=== PATIENT | male | born 1945 | race Caucasian/White ===

== ENCOUNTER 2017-10-29 06:10 | Inpatient (IN) | payer OTHER, BC ==
[2017-10-01 13:28] VITALS: BMI 33.0
[2017-10-01 13:29] LABS: BASO % 0.3 %; BASO ABS # 0.03 K/uL (0-0.2); EOS % 7.9 %; EOS ABS # 0.83 K/uL (0-0.5); HEMATOCRIT 46.8 % (42-52); HEMOGLOBIN 15.8 g/dL (14.0-18.0); IG# 0.03 K/uL (0.00-0.02); LYMPH % 18.4 %; LYMPH ABS # 1.94 K/uL (1.2-3.4); MEAN CELL VOLUME 92.5 fL (80-100); MEAN CORPUSCULAR HEMOGLOBIN 31.2 pg (25-34); MEAN CORPUSCULAR HGB CONC 33.8 g/dl (32-36); MEAN PLATELET VOLUME 11.4 fL (7.4-10.4); MONO ABS # 0.74 K/uL (0.11-0.59); NEUT % 66.1 %; NEUT ABS # 6.98 K/uL (1.4-6.5); PLATELET COUNT 233 K/uL (130-400); RED CELL DISTRIBUTION WIDTH CV 12.7 % (11.5-14.5); RED CELL DISTRIBUTION WIDTH SD 42.4 fL (36.4-46.3); WHITE BLOOD COUNT 10.55 K/uL (4.8-10.8)
[2017-10-01 13:42] LABS: PTT PATIENT 25.8 SECONDS (21.0-31.0)
[2017-10-01 13:56] LABS: HEMOGLOBIN A1C 7.4 % (4.5-5.6)
--- NOTE | 2017-10-01 14:09 | PAT Medication Instructions ---
Service Date Oct 01, 2017. Current Home Medication List Albuterol Hfa (Ventolin Hfa), 2 PUFFS INH Q6H PRN for PRN Amlodipine/Benazepril (Lotrel 10MG/20MG), 1 CAP PO QAM Ascorbic Acid (Vitamin C), 1,000 MG PO QAM Aspirin (Aspirin Ec), 81 MG PO QAM Atorvastatin (Lipitor), 20 MG PO QAM Fish Oil ([place]-3), 1 CAP PO QAM Fluticasone Propionate (Nasal) (Flonase Allergy Relief), 2 SPRAYS INTNAS QPM Garlic (Garlic), 500 MG PO QAM Home O2 Therapy (Oxygen), 2 LITERS NA PRN Meloxicam (Mobic), 15 MG PO QAM Metformin Hcl (Glucophage), 500 MG PO BID Milk Thistle (Silybum Marianum (Milk Thistle), 1,000 MG PO QAM Misc Natural Products (Saw [place]), 1 TAB PO QAM Multivitamin (Multivitamin), 1 TAB PO QAM Vitamin E (Vitamin E), 1,000 UNITS PO QAM [Calcium ], 600 MG PO QAM [Inhaler-Steroid], 1 PUFF INH BID Medication Instructions For Your Scheduled Surgery - Check with surgeon for instructions: Meloxicam (Mobic), 15 MG PO QAM - Hold the following medications 2 weeks prior to surgery: Vitamin E (Vitamin E), 1,000 UNITS PO QAM Milk Thistle (Silybum Marianum (Milk Thistle), 1,000 MG PO QAM Misc Natural Products (Saw [place]), 1 TAB PO QAM Garlic (Garlic), 500 MG PO QAM Fish Oil ([place]-3), 1 CAP PO QAM - Hold the following medications 48 hours prior to surgery: Metformin Hcl (Glucophage), 500 MG PO BID - Hold the following medications the morning of surgery: Amlodipine/Benazepril (Lotrel 10MG/20MG), 1 CAP PO QAM Ascorbic Acid (Vitamin C), 1,000 MG PO QAM Multivitamin (Multivitamin), 1 TAB PO QAM [Calcium ], 600 MG PO QAM - Take the following medications the morning of surgery with a sip of water: [Inhaler-Steroid], 1 PUFF INH BID Home O2 Therapy (Oxygen), 2 LITERS NA PRN (if needed) Aspirin (Aspirin Ec), 81 MG PO QAM (okay to continue per surgeon) Atorvastatin (Lipitor), 20 MG PO QAM Albuterol Hfa (Ventolin Hfa), 2 PUFFS INH Q6H PRN for PRN (if needed) - Take the following medications as scheduled the night before surgery: [Inhaler-Steroid], 1 PUFF INH BID Home O2 Therapy (Oxygen), 2 LITERS NA PRN (if needed) Fluticasone Propionate (Nasal) (Flonase Allergy Relief), 2 SPRAYS INTNAS QPM Albuterol Hfa (Ventolin Hfa), 2 PUFFS INH Q6H PRN for PRN (if needed) If you have any questions please call us at [phone] or [phone] or [phone]
--- NOTE | 2017-10-01 15:06 | DIAGNOSTIC IMAGING REPORT ---
TWO VIEW CHEST CLINICAL HISTORY: Preoperative examination. FINDINGS: PA and lateral chest radiographs are compared to study dated 06/05/2011. The heart is top normal for projection. The pulmonary vasculature is noncongested. Chronic interstitial thickening is similar to previous. There is minimal left basilar atelectasis. The lungs and pleural spaces are otherwise clear. There is no pneumothorax. The skeletal structures are osteopenic. Degenerative change is noted throughout the thoracic spine. Bilateral shoulder arthroplasties are in place. IMPRESSION: No active disease in the chest. Electronically signed by: Trung Rai M.D. 10/01/2017 3:05 PM Dictated Date/Time: 10/01/2017 3:04 PM
[2017-10-01 16:45] LABS: ALBUMIN 3.9 gm/dl (3.4-5.0); CALCIUM 10.6 mg/dl (8.5-10.1); CREATININE 0.79 mg/dl (0.60-1.40); POTASSIUM 4.2 mmol/L (3.5-5.1)
[2017-10-01 16:48] LABS: TOTAL PROTEIN 7.3 gm/dl (6.4-8.2)
--- NOTE | 2017-10-28 11:16 | History and Physical ---
History & Physical Date Oct 28, 2017. Chief Complaint LEFT HIP PAIN History of Present Illness The patient is a 71 year old male with complaints of left hip pain for years. Pt having trouble ambulating and has tried nsaids and PT. Additional History Hepatic Disease: No Endocrine Disorder: No Kidney Disease: No Hypertension: Yes Heart Disease: Yes Bleeding Tendencies: No Infectious Diseases: No Allergies Coded Allergies: No Known Allergies (Verified , 10/01/17) Home Medications Scheduled Amlodipine/Benazepril (Lotrel 10MG/20MG), 1 CAP PO QAM Ascorbic Acid (Vitamin C), 1,000 MG PO QAM Aspirin (Aspirin Ec), 81 MG PO QAM Atorvastatin (Lipitor), 20 MG PO QAM Fish Oil ([place]-3), 1 CAP PO QAM Fluticasone Propionate (Nasal) (Flonase Allergy Relief), 2 SPRAYS INTNAS QPM Garlic (Garlic), 500 MG PO QAM Home O2 Therapy (Oxygen), 2 LITERS NA PRN Meloxicam (Mobic), 15 MG PO QAM Metformin Hcl (Glucophage), 500 MG PO BID Milk Thistle (Silybum Marianum (Milk Thistle), 1,000 MG PO QAM Misc Natural Products (Saw [place]), 1 TAB PO QAM Multivitamin (Multivitamin), 1 TAB PO QAM Vitamin E (Vitamin E), 1,000 UNITS PO QAM [Calcium ], 600 MG PO QAM [Inhaler-Steroid], 1 PUFF INH BID Scheduled PRN Albuterol Hfa (Ventolin Hfa), 2 PUFFS INH Q6H PRN for PRN Physical Examination Skin: warm/dry, no rash Eyes: normal inspection, EOMI, sclerae normal ENT: normal ENT inspection, pharynx normal Head: normocephalic, atraumatic Neck: supple, no adenopathy, trachea midline Respiratory/Chest: lungs clear, normal breath sounds, no respiratory distress Cardiovascular: regular rate, rhythm, no edema, no murmur Abdomen / GI: normal bowel sounds, non tender Back: normal inspection Extremities: normal inspection, normal range of motion, + pertinent finding ( pain with rom left hip. limited rom left hip. ) Neurologic/Psych: no motor/sensory deficits, alert, normal reflexes, oriented x 3 Diagnosis DJD LEFT HIP Plan of Treatment PLAN IS TO ADMIT AND UNDERGO LEFT TOTAL HIP ARTHROPLASTY.
[~2017-10-29] VITALS: Ht 175.3 cm; Wt 103.5 kg
[2017-10-29] VITALS (9 sets, daily range): BP systolic 116–150; BP diastolic 63–83; PULSE 70–99; TEMP 36.2–36.9; O2SAT 92–100; Ht 175.3 cm; Wt 103.5 kg
[~2017-10-29 06:10] MED LIST: ACETAMINOPHEN 500 MG TAB PO SCH; AMLO10CA PO; ASCO10003 PO; ASPI81TA28 PO; ATOR-22 PO; CALCIUM PO; CEFAZOLIN 2000MG IV PUSH 15 ML IV SCH; CeleBREX 200 MG CAP PO SCH; DEXAMETHASONE 4 MG TAB PO SCH; FAMOTIDINE 20 MG TAB PO SCH; FLUT0.15 INTNAS; GARL500C5 PO; GLC/500 PO; LACTATED RINGER'S 1000ML 1,000 ML IV SCH; LACTATED RINGER'S 1000ML 500 ML IV SCH; LACTATED RINGER'S 1000ML IV SCH; MELO7.5T5 PO; METOCLOPRAMIDE HCL 10 MG TAB PO SCH; MILK1CAP9 PO; MISC1CAP60 PO; MULT-506 PO; OMEG10007 PO; OXGN; ROPIVACAINE 5MG/ML 30 ML 150 MG, BUPIVACAINE 0.5% MPF INJ 30 ML, EpINEphrine HCL INJ 0.... INFIL SCH; STEROID INH; VITA10004 PO; VNTHFA/IN INH
[2017-10-29] MEDS ORDERED: MIDAZOLAM HCL 1 MG/ML 2ML VIAL ONE (06:38)
[2017-10-29] MEDS ORDERED: FENTANYL CITRATE INJ 50 MCG/1 ML 2 ML VIAL ONE (06:38)
[2017-10-29] MEDS ORDERED: BUPIVACAINE 0.5 % 5 MG/1 ML PF 10ML VIAL ONE (06:40)
--- NOTE | 2017-10-29 06:44 | History & Physical Bridge Note ---
H&P Re-Evaluation Bridge Note: I have examined the patient, reviewed the History & Physical and in the interval since the performance of the History & Physical I have noted the following changes of clinical significance: No changes noted
[2017-10-29] MEDS ORDERED: BACITRACIN 50000 UNIT VIAL ONE (07:34)
[2017-10-29] MEDS ORDERED: POVIDONE-IODINE OP SOLN 30 ML BTL ONE (07:35)
[2017-10-29] MEDS: TRANEXAMIC ACID INJ 1,000 MG x 2 Bags IV SCH ×4 (07:40→10:05)
[2017-10-29] MEDS: ORTHO JOINT ANESTHETIC ONE ×2 (08:25→15:05)
[2017-10-29] MEDS ORDERED: LIDOCAINE HCL 2% 2 ML VIAL (20MG/ML) ONE (08:38)
[2017-10-29] MEDS ORDERED: ONDANSETRON INJ 2 MG/ML 2 ML VIAL ONE (08:38)
[2017-10-29] MEDS ORDERED: PROPOFOL IV EMULSION 10 MG/ML 20 ML VIAL IV ONE (08:38)
[2017-10-29] MEDS ORDERED: EpHEDrine SULFATE 50MG/5ML SYR ONE (08:38)
--- NOTE | 2017-10-29 09:05 | [facility] Post Operative Brief Note ---
Immediate Operative Summary Operative Date Oct 29, 2017. Pre-Operative Diagnosis Left hip osteoarthritis Post-Operative Diagnosis Left hip osteoarthritis Procedure(s) Performed Left stephanie Surgeon Dr. Villeda Construction Executive Surgeon(s) Urban Navarrete PA-C Estimated Blood Loss 40cc Findings Consistent with Post-Op Diagnosis Specimens A) Left femoral head- bone and tissue Drains yes Anesthesia Type Spinal Complication(s) none Disposition Accompanied Pt To Recover: no Disposition: Recovery Room / PACU
[2017-10-29] MEDS ORDERED: BISACODYL 10 MG SUPP PR PRN (09:15)
[2017-10-29] MEDS ORDERED: LABETALOL HCL IV 5 MG/ML 20ML IV PRN (09:15)
[2017-10-29] MEDS ORDERED: ALUMINUM/MAGNESIUM/SIMETH (MAALOX MAX) 30 ML UDC PO PRN (09:15)
[2017-10-29] MEDS ORDERED: ATROPINE SULFATE 0.1 MG/ML 5ML SYR IV PRN (09:15)
[2017-10-29] MEDS ORDERED: MAGNESIUM HYDROXIDE SUSP 30 ML UDC PO PRN (09:15)
[2017-10-29] MEDS ORDERED: OXYCODONE HCL IR 5 MG TAB (IMMEDIATE RELEASE) PO PRN (09:15)
[2017-10-29] MEDS ORDERED: MEPERIDINE HCL 25 MG/ML CARP IV PRN (09:15)
[2017-10-29] MEDS ORDERED: ONDANSETRON INJ 2 MG/ML 2 ML VIAL IV PRN ×2 (09:15)
[2017-10-29] MEDS ORDERED: FENTANYL CITRATE INJ 50 MCG/1 ML 2 ML VIAL IV PRN (09:15)
[2017-10-29] MEDS ORDERED: ZOLPIDEM TARTRATE 5 MG TAB PO PRN (09:15)
[2017-10-29] MEDS ORDERED: HYDROmorphone INJ 1 MG/ML SYR IV PRN (09:15)
[2017-10-29] MEDS ORDERED: EpHEDrine SULFATE INJ 50 MG/ML AMP IV PRN (09:15)
--- NOTE | 2017-10-29 09:17 | [facility] Operative Report ---
Operative Report Operative Date Oct 29, 2017. Pre-Operative Diagnosis Left hip osteoarthritis Post-Operative Diagnosis Left hip osteoarthritis Procedure(s) Performed Left Total Hip Arthroplasty, uncemented Surgeon Dr. Villeda Wind Field Manager Surgeon(s) Urban Navarrete PA-C Estimated Blood Loss 40cc Findings As above Specimens A) Left femoral head- bone and tissue Drains yes Anesthesia Type Spinal MAC Complication(s) none Disposition no Recovery Room / PACU Description of Procedure IMPLANTS USED: [place] size 54 mm PSL acetabular cup, one acetabular screw, a # 6 Accolade 2 stem with a 127 neck, and a 36 mm X3 elevated liner, and a 36 mm - 5 ceramic head INDICATIONS: Mr. Gallegos is a pleasant male who has unfortunately failed all forms of conservative measures. Therefore, they have has decided to undergo elective surgical intervention. All risks and benefits of the surgery were discussed with the patient and the family in entirety. PROCEDURE: The patient was brought to the operating room and properly identified by myself, anesthesia, and staff. Patient was given a spinal anesthetic and placed on the operating table with the left hip up. The hip was then prepped and draped in the standard orthopedic fashion. We made a standard posterolateral approach over the greater trochanteric area. We then dissected down to subcutaneous tissue until the fascia was identified. We incised the fascia in line with the skin incision. We then split the gluteus danna muscles with finger dissection. We then put the [place]arn[place] retractor in place. We placed the retractor underneath the gluteus medius to expose the piriformis. The piriformis was then tagged with a tag suture and released from the insertion from the greater trochanteric area with the use of electrocautery. We then performed a T capsulotomy and the femoral head and neck were atraumatically dislocated. We then performed femoral neck osteotomy at the pre- template site. We removed the femoral head and neck without difficulty. We then placed the retractor around the acetabulum. We then began to ream the acetabulum to the appropriate size. We then impacted the cup into place and had a very good fixation within the pelvis. We then put the liner in place as well. Then using multiple size approaches from the Accolade 2 system a size ## 6 fit very nicely in the proximal femur. I then put trial components in place. WE had very good range of motion, excellent stability, and excellent leg length equality. We removed the trial components and irrigated the wound. We then impacted the components in place and irrigated the wound once more. We then closed the capsule and fascia with a 0 Vicryl suture, the deep dermis with 2-0 Vicryl suture, and finally the skin with a running 3-0 Vicryl subcuticular stitch. A sterile dressing was applied. The patient was taken to the recovery room in stable condition. Due to the complex nature of the procedure, the entire surgery was performed with the operational assistance of Urban rudolph. The addictions counselor assistant was under direct supervision, was involved in the actual performance of all aspects of the surgical procedure including hemostasis, tissue retraction and incision, instrument management, patient positioning, and wound closure. I attest to the content of the Intraoperative Record and any orders documented therein. Any exceptions are noted below.
[2017-10-29] MEDS: SODIUM CHLORIDE 0.9% 1000ML 1,000 ML IV SCH ×2 (10:43→20:48)
--- NOTE | 2017-10-29 10:45 | Anesthesiology Progress Note ---
Anesthesia Post Op Note Date & Time Oct 29, 2017 at 10:45 Vital Signs Pain Intensity: 0 Vital Signs Past 12 Hours Date Time Temp Pulse Resp B/P (MAP) Pulse Ox O2 Delivery O2 Flow Rate FiO2 10/29/17 09:50 70 18 130/62 94 Nasal Cannula 4 10/29/17 09:40 80 16 121/69 99 Oxymask 10 10/29/17 09:30 38.1 77 16 120/68 95 Oxymask 10 10/29/17 06:47 36.8 76 20 150/83 92 Room Air Notes Mental Status: alert / awake / arousable, participated in evaluation Pt Amnestic to Procedure: Yes Nausea / Vomiting: adequately controlled Pain: adequately controlled Airway Patency, RR, SpO2: stable & adequate BP & HR: stable & adequate Hydration State: stable & adequate Neuraxial Anesthesia: was administered, sensory block is resolving Anesthetic Complications: no major complications apparent
[2017-10-29] MEDS: ALBUTEROL HFA 8 GM INHALER INH PRN ×2 (10:46→17:29)
[2017-10-29] MEDS: ACETAMINOPHEN 500 MG TAB PO SCH ×2 (15:02→20:51)
[2017-10-29] MEDS ORDERED: TRANEXAMIC ACID INJ 1,000 MG in SODIUM CHLORIDE 0.9% 100ML 100 ML IV ONE (15:30)
[2017-10-29] MEDS: METFORMIN HCL 500 MG TAB PO SCH (18:13)
[2017-10-29] MEDS: CEFAZOLIN IV 2,000 MG in SYRINGE 0 ML IV SCH ×2 (18:16→23:37)
[2017-10-29] MEDS: PULMICORT 180 MCG INH SCH (20:48)
[2017-10-29] MEDS: DOCUSATE SODIUM 100 MG CAP PO SCH (20:50)
[2017-10-29] MEDS: ASPIRIN 81 MG ECTAB PO SCH (20:50)
[2017-10-29] MEDS ORDERED: FLUTICASONE PROPIONATE NA SPR 16 GM BTL SCH (21:00)
[2017-10-30 03:20] VITALS: BP 144/84; PULSE 79; TEMP 36.7; O2SAT 94
[2017-10-30] MEDS: SODIUM CHLORIDE 0.9% 1000ML 1,000 ML IV SCH (05:59)
[2017-10-30] MEDS: ACETAMINOPHEN 500 MG TAB PO SCH (05:59)
[2017-10-30 07:04] LABS: BASO % 0.1 %; BASO ABS # 0.01 K/uL (0-0.2); EOS % 0.1 %; EOS ABS # 0.01 K/uL (0-0.5); HEMATOCRIT 38.9 % (42-52); HEMOGLOBIN 13.1 g/dL (14.0-18.0); IG# 0.06 K/uL (0.00-0.02); LYMPH % 8.1 %; MEAN CELL VOLUME 91.1 fL (80-100); MEAN CORPUSCULAR HEMOGLOBIN 30.7 pg (25-34); MEAN CORPUSCULAR HGB CONC 33.7 g/dl (32-36); MEAN PLATELET VOLUME 11.7 fL (7.4-10.4); MONO % 9.2 %; MONO ABS # 1.59 K/uL (0.11-0.59); NEUT % 82.2 %; NEUT ABS # 14.12 K/uL (1.4-6.5); PLATELET COUNT 215 K/uL (130-400); RED CELL DISTRIBUTION WIDTH CV 12.8 % (11.5-14.5); RED CELL DISTRIBUTION WIDTH SD 42.3 fL (36.4-46.3); WHITE BLOOD COUNT 17.19 K/uL (4.8-10.8)
[2017-10-30] MEDS ORDERED: DEXAMETHASONE INJ 10 MG in SYRINGE 0 ML IV ONE (07:30)
[2017-10-30] MEDS: ALBUTEROL HFA 8 GM INHALER INH PRN (07:39)
[2017-10-30] MEDS: PULMICORT 180 MCG INH SCH (07:39)
[2017-10-30 08:18] VITALS: BP 141/85; PULSE 64; TEMP 36.9; O2SAT 95
[2017-10-30] MEDS ORDERED: ATORVASTATIN 20 MG TAB PO SCH (09:00)
[2017-10-30] MEDS ORDERED: AMLODIPINE BESYLATE 5 MG TAB PO SCH (09:00)
[2017-10-30] MEDS ORDERED: BENAZEPRIL HCL 10 MG TAB PO SCH (09:00)
[2017-10-30] MEDS: DOCUSATE SODIUM 100 MG CAP PO SCH (09:04)
[2017-10-30] MEDS: ASPIRIN 81 MG ECTAB PO SCH (09:05)
[2017-10-30] MEDS: METFORMIN HCL 500 MG TAB PO SCH (09:05)
--- NOTE | 2017-10-30 09:22 | Orthopedic Progress Note ---
Orthopedic Progress Note Date of Service Oct 30, 2017. Subjective Post OP Day: 1 Reports: feeling well, Denies: complaints Objective calves soft nontender, N/V intact, hip located, dressing C/D/I (mild drainage on silverlon dressing window), A&O x3, toes mobile Date Time Temp Pulse Resp B/P (MAP) Pulse Ox O2 Delivery O2 Flow Rate FiO2 10/30/17 08:18 36.9 64 18 141/85 (103) 95 Room Air 10/30/17 07:35 Room Air 10/30/17 03:20 36.7 79 16 144/84 (104) 94 Room Air 10/30/17 00:08 Room Air 10/29/17 23:05 36.9 84 16 132/82 (99) 96 Nasal Cannula 2.0 10/29/17 19:30 36.6 99 18 138/76 (96) 94 Room Air 10/29/17 15:56 95 Room Air 10/29/17 13:28 36.6 95 16 116/67 (83) 97 Nasal Cannula 4.0 10/29/17 12:10 36.6 85 16 132/77 (95) 92 Nasal Cannula 4.0 10/29/17 11:12 36.4 73 16 148/80 (102) 95 Nasal Cannula 4.0 10/29/17 10:56 36.4 71 14 133/63 (86) 94 Nasal Cannula 4.0 10/29/17 10:15 36.6 70 16 121/70 (87) 92 Nasal Cannula 4.0 10/29/17 10:15 Nasal Cannula 4.0 10/29/17 09:50 70 18 130/62 94 Nasal Cannula 4 10/29/17 09:40 80 16 121/69 99 Oxymask 10 10/29/17 09:30 38.1 77 16 120/68 95 Oxymask 10 Laboratory Results 24 Hours: Test 10/30/17 06:07 White Blood Count 17.19 K/uL Red Blood Count 4.27 M/uL Hemoglobin 13.1 g/dL Hematocrit 38.9 % Mean Corpuscular Volume 91.1 fL Mean Corpuscular Hemoglobin 30.7 pg Mean Corpuscular Hemoglobin Concent 33.7 g/dl Platelet Count 215 K/uL Mean Platelet Volume 11.7 fL Neutrophils (%) (Auto) 82.2 % Lymphocytes (%) (Auto) 8.1 % Monocytes (%) (Auto) 9.2 % Eosinophils (%) (Auto) 0.1 % Basophils (%) (Auto) 0.1 % Neutrophils # (Auto) 14.12 K/uL Lymphocytes # (Auto) 1.40 K/uL Monocytes # (Auto) 1.59 K/uL Eosinophils # (Auto) 0.01 K/uL Basophils # (Auto) 0.01 K/uL Assessment & Plan Assessment: POD 1 s/p Left PATRICIA Plan: PT/OT Planning for HH PT Possible dc to home today Inhouse Planning Pain Management: PO Tylenol, Oxy IR DVT Prophylaxis: TEDs, SCDs, ASA Discharge Planning Discharge Planning: home with home health Pain Management: Ultram, PO Tylenol DVT Prophylaxis: TEDs, ASA Therapy: Physical Therapy
[2017-10-30] MEDS ORDERED: ACET-24 PO (09:26)
[2017-10-30] MEDS ORDERED: TRAM-10 PO (09:26)
[2017-10-30] MEDS ORDERED: ASPI81TA28 PO (09:26)
--- NOTE | 2017-10-30 09:30 | Discharge Instructions ---
Discharge Instructions Date of Service Oct 30, 2017. Admission Reason for Admission: Left Hip Osteoarthritis Discharge Discharge Diagnosis / Problem: Left Hip Djd Discharge Goals Goal(s): Decrease discomfort, Improve function, Increase independence Activity Recommendations Activity Limitations: per Instructions/Follow-up section Weightbearing Status: Left weightbearing (as tolerated) . Instructions / Follow-Up Instructions / Follow-Up Dr Villeda Total Hip Replacement Discharge Instructions Silverlon dressing stays on for 7 days. It must be changed if it is soaked. This can be replaced with gauze and MAX Wrap. Otherwise, if not soaked, it's stays on for 7 days. Patients my shower after 2 days if the Silverlon is on because it is waterproof, but not Spa proof. If the Silverlon had to be removed then patient should wait 5 days to shower. Quick showers, not Spa time! After 7 days, please wipe with gauze and peroxide once daily. Do Not Soak. ICE constantly. If a drain is in place, it is to be removed when less than 10cc for 2 consecutive 8 hr shifts. If DEB / Prevena device is in place, please see the instructions sheet. Also every Home Nursing Agency, Home PT, and Rehab is aware how this works. If your Home nurse or Therapist says they don't know what this is, have them call [facility] or their process excellence manager right away. It is meant to protect and help your incision healed faster. Please read the Do's and Don'ts sheet. This paper and the dues and downs are the most important the rest of your paperwork from the hospital is redundant and or confusing. This is the info I want you to take to heart. I typically give you 5 prescriptions. Some are Eprescribed to pharmacy already. They are: 1. Tramadol or some form of a pain pill. Please take. Most important. 2. Aspirin - this is for blood clot prevention, please take. You may have them prescribe something stronger than aspirin, if so, you won't have a script for aspirin daily. 3. Tylenol. 4. Zofran - this is for nausea, take it if you need. 5. Celebrex - helps with inflammation, if not covered by insurance, then use ibuprofen 600 mg 2 to 3 times a day. If any problems or concerns, please call [facility] ( Tabby if she is your coordinator ) FIRST. Do not go to ER unless directed by your [facility] physician or it's an absolute emergency. Our phone numbers are located all throughout your U packet. Follow up with Dr Villeda in 2 weeks. Call for an appointment if one has not been made for you. [phone] Current Hospital Diet Patient's current hospital diet: Regular Diet Discharge Diet Recommended Diet: Regular Diet Procedures Procedures Performed: Left Total Hip Arthroplasty, uncemented Pending Studies Studies pending at discharge: no Laboratory Results Hemoglobin A1c Test 10/01/17 13:05 Range/Units Estimated Average Glucose 166 mg/dl Hemoglobin A1c 7.4 H 4.5-5.6 % Medical Emergencies . Who to Call and When: Medical Emergencies: If at any time you feel your situation is an emergency, please call 911 immediately. . Non-Emergent Contact Non-Emergency issues call your: Surgeon Call Non-Emergent contact if: temperature is above 101.5, your pain is not controlled, your pain is worsening, wound has increased drainage, wound has increased redness . "Provider Documentation" section prepared by Urabn Navarrete. . VTE Core Measure Inpt VTE Proph given/why not?: Other Anticoagulation, T.E.D. Stockings, SCD's [place] Drug Monitoring Program Search Results: patient reviewed within database, no issues identified
[2017-10-30 10:06] VITALS: BP 141/85; PULSE 64; TEMP 36.9; O2SAT 95
--- NOTE | 2017-11-05 09:24 | Discharge Summary ---
Orthopedic Discharge Summary Admission Date/Reason Oct 29, 2017 at 06:45 Left Hip Osteoarthritis. Discharge Date/Disposition Oct 30, 2017 Home with services Diagnosis Principal Diagnosis: Left Hip Osteoarthritis Secondary Diagnoses/Problems: HTN, Heart Disease Procedure(s) Performed Left PATRICIA Medication Reconciliation New Medications: Tramadol (Ultram) 50 Mg Tab 1-2 TABS PO Q4H PRN for Pain, #60 TAB Acetaminophen (Sb Non-Aspirin Extra Stre) 500 Mg Tab 1000 MG PO Q8 for 21 Days, #126 TAB Changed Medications: Aspirin (Aspirin Ec) 81 Mg Tab 81 MG PO BID for 30 Days (Changed from: QAM) After 30 days, you may resume your once daily dose of Aspirin Continued Medications: Albuterol Hfa (Ventolin Hfa) 200 Puffs/09508 Mcg Aers 2 PUFFS INH Q6H PRN for PRN, #1 INHALER Amlodipine/Benazepril (Lotrel 10MG/20MG) 10 Mg/20 Mg Cap 1 CAP PO QAM, 0 Refills Ascorbic Acid (Vitamin C) 1,000 Mg Tab 1000 MG PO QAM Atorvastatin (Lipitor) 20 Mg Tab 20 MG PO QAM, 0 Refills Fish Oil ([place]-3) 1 Ea Cap 1 CAP PO QAM, CAP Fluticasone Propionate (Nasal) (Flonase Allergy Relief) 50 Mcg/Act Spr 2 SPRAYS INTNAS QPM Garlic (Garlic) 500 Mg Cap 500 MG PO QAM Home O2 Therapy (Oxygen) Gas 2 LITERS NA PRN, BTL Metformin Hcl (Glucophage) 500 Mg Tab 500 MG PO BID, TAB Milk Thistle (Silybum Marianum (Milk Thistle) 1,000 Mg Cap 1000 MG PO QAM Misc Natural Products (Saw [place]) 1 Cap Cap 1 TAB PO QAM Multivitamin (Multivitamin) Tab 1 TAB PO QAM, 0 Refills Vitamin E (Vitamin E) 1,000 Unit Cap 1000 UNITS PO QAM [Calcium ] () 600 MG PO QAM [Inhaler-Steroid] () 1 PUFF INH BID Discontinued Medications: Meloxicam (Mobic) 7.5 Mg Tab 15 MG PO QAM, TAB Admission Physical Exam As per Admitting History & Physical. Hospital Course The Patient had an uneventful hospital course. Labs remained stable- lowest hemoglobin recorded: 13.1 . Pain controlled on oral medications. Participated in PT with ambulation distance of 350-2 feet. Drainage output totaled 0 cc prior to discontinuation. Patient did not have a reported bowel movement. Incision remained clean/dry/intact; leg lengths equal. DVT prophylaxis with Aspirin EC 81mg BID x 30 days/Lyle stockings. Patient discharged home with Home Health Services in stable condition. Please refer to daily progress notes for further details. Discharge Instructions Please refer to the electronic Patient Visit Report (Discharge Instructions) for additional information.
== END 2017-10-30 12:15 | disposition home health service (06) | DRG 470 ==
LOC: C.ACU 06:10 → C.3E 06:45 → ENRESERV 09:51
PROVIDERS: ADMIT Orthopaedic Surgery; ATTEND Orthopaedic Surgery
PROC: 0SRB0JA Replacement of Left Hip Joint with Synthetic Substitute, Uncemented, Open Approach (ICD-10-PCS; principal; 2017-10-29 08:30)
DX: M16.12 Unilateral primary osteoarthritis, left hip (principal); I11.9 Hypertensive heart disease without heart failure; E11.9 Type 2 diabetes mellitus without complications; J44.9 Chronic obstructive pulmonary disease, unspecified; Z79.899 Other long term (current) drug therapy; Z79.82 Long term (current) use of aspirin; Z79.84 Long term (current) use of oral hypoglycemic drugs